=== PATIENT | male | born 1940 | race Caucasian/White ===

== ENCOUNTER 2016-08-22 09:41 | Observation (INO) | payer MEDICARE ==
[2016-08-22] MEDS ORDERED: Zofran 4 MG/2 ML VIAL IV ONE (10:17)
[2016-08-22] MEDS ORDERED: Hydromorphone 1 mg/ml Ampule IV ONE ×2 (10:17→11:50)
--- NOTE | 2016-08-22 10:23 | ERPHSYRPT ---
- History of Present Illness Time Seen by Provider: 08/22/16 09:52 Historian: patient, family () Patient Subjective Stated Complaint: PT REPROTS KNEE [id number] WEDNESDAY -STATES HE HAS ABD BURNING-HAS NOT HAD A GOOD BM SINCE SURGERY-STATES BURNING INCREASES WITH EATING-DENIES N/V-DENIES DIFFICULTY URINATING-DENIED BLOOD IN STOOL Triage Nursing Assessment: PT PALE WARM ET DRY-ABD FIRM-NONTENDER TO PALP-BOWEL SOUNDS HYPOACTIVE Physician History: CC: abd pain Hx: 75 y/o patient of Dr Chawla and Dr Mandel 4 days post op left knee replacement. He went home 2 days ago. No BM until this AM which was good but sticky. No blood in stool. He has 1-2 day hx of abd pain. This AM had nausea and vomited once. No fever or chills. No chest pain. No prior abd surgeries. Pain is moderately severe. Timing/Duration: day(s) (2) Quality: aching Abdominal Pain Onset Location: epigastric, generalized abdomen Pain Radiation: no radiation Severity of Pain-Max: moderate Severity of Pain-Current: moderate Allergies/Adverse Reactions: No Known Drug Allergies Allergy (Unverified 08/22/16 10:02) Home Medications: Aspirin 81 gm Chew [Baby Aspirin 81 mg Chew] 81 mg PO DAILY 08/22/16 [ History] Carvedilol 3.125 mg [Coreg 3.125 MG] 3.125 mg PO BID 08/22/16 [History] Glipizide/Metformin HCl [Glipizide-Metformin 2.5-500 mg] 1 each PO BID 08/22/16 [History] Hydrocodone Bit/Acetaminophen [[place] 10-325 Tablet] 1 each PO UD 08/22/16 [ History] Hydroxychloroquine Sulfate 200 mg PO DAILY 08/22/16 [History] Levothyroxine Sodium 75 Mcg [Synthroid 75 Mcg] 75 mcg PO DAILY 08/22/16 [ History] Lisinopril 10 mg [Zestril 10 MG] 10 mg PO BID 08/22/16 [History] Pravastatin Sodium [Pravachol] 20 mg PO HS 08/22/16 [History] Hx Tetanus, Diphtheria Vaccination/Date Given: No Hx Influenza Vaccination/Date Given: Yes Hx Pneumococcal Vaccination/Date Given: No Immunizations Up to Date: Yes - Review of Systems Constitutional: No Fever, No Chills Eyes: No Symptoms Ears, Nose, & Throat: No Symptoms Respiratory: No Cough, No Dyspnea Cardiac: No Chest Pain Abdominal/Gastrointestinal: Abdominal Pain, Nausea, Vomiting (X1 ), No Diarrhea Skin: No Rash Neurological: No Headache All Other Systems: Reviewed and Negative - Past Medical History Pertinent Past Medical History: Yes Neurological History: Peripheral Neuropathy Cardiac History: Hypertension, Other Respiratory History: No Pertinent History Endocrine Medical History: Diabetes Type II, Hypothyroidism Musculoskeletal History: Osteoarthritis Other Medical History: 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 Vital Signs: Initial Vital Signs Temperature 97.9 F Temperature Source Oral Pulse Rate 71 Respiratory Rate 22 Blood Pressure [Right Arm] 129/68 Pain Intensity 2 - Physical Exam General Appearance: alert Eye Exam: PERRL/EOMI Ears, Nose, Throat Exam: moist mucous membranes Neck Exam: normal inspection, non-tender, supple Respiratory Exam: normal breath sounds Cardiovascular Exam: regular rate/rhythm Gastrointestinal/Abdomen Exam: soft, tenderness (diffuse tender worse epigastrum ) Male Genitalia Exam: normal genitalia, No testicular tenderness Extremity Exam: pedal edema (trace) Neurologic Exam: alert, oriented x 3, cooperative, sensation nml, No motor deficits Skin Exam: warm, dry, pale SpO2 Interpretation: normal SpO2: 97 Oxygen Delivery: Room Air - Course Nursing assessment & vital signs reviewed: Yes EKG Interpreted by Me: RATE (79), Sinus Rhythm, NORMAL AXIS, NORMAL INTERVALS ( QTc 418), NORMAL QRS, Non-specific ST Changes - CT Exams abd pelvis CT Interpretation: Tele-radiologist Report (no acute) Ordered Tests: Active Orders 24 hr Category Date Time Status Clean Catch Urine Specimen STAT Care 08/22/16 10:17 Active EKG-ER Only STAT Care 08/22/16 10:17 Active IV Insertion STAT Care 08/22/16 10:17 Active NPO (ED) STAT Care 08/22/16 10:17 Active ABDOMEN AND PELVIS W CONTRAST [CT] Stat Exams 08/22/16 10:17 Taken CBC W DIFF Stat Lab 08/22/16 10:00 Completed CMP Stat Lab 08/22/16 10:00 Completed LIPASE Stat Lab 08/22/16 10:00 Completed Lactic Acid Stat Lab 08/22/16 10:17 Completed UA W/ MICROSCOPIC Stat Lab 08/22/16 11:10 Completed Medication Summary Generic Name Dose Route Start Last Admin Trade Name Freq PRN Reason Stop Dose Admin Sodium Chloride 1,000 mls @ 100 mls/hr 08/22/16 10:30 08/22/16 10:44 Sodium Chloride 0.9% 1000 Ml IV 09/21/16 10:29 100 mls/hr .Q10H SPENSER Administration Discontinued Medications Generic Name Dose Route Start Last Admin Trade Name Freq PRN Reason Stop Dose Admin Famotidine 20 mg 08/22/16 11:50 08/22/16 11:56 Pepcid 20 Mg Vial IV 08/22/16 11:51 20 mg STAT ONE Administration Famotidine Confirm 08/22/16 11:55 Pepcid 20 Mg Vial Administered 08/22/16 11:56 Dose 20 mg IV .STK-MED ONE Hydromorphone HCl 0.5 mg 08/22/16 10:17 08/22/16 10:44 Hydromorphone 1 Mg/Ml Ampule IV 08/22/16 10:18 0.5 mg STAT ONE Administration Hydromorphone HCl Confirm 08/22/16 10:38 Hydromorphone 1 Mg/Ml Ampule Administered 08/22/16 10:39 Dose 1 mg .ROUTE .STK-MED ONE Hydromorphone HCl 0.5 mg 08/22/16 11:50 Hydromorphone 1 Mg/Ml Ampule IV 08/22/16 11:51 STAT ONE Ondansetron HCl 4 mg 08/22/16 10:17 08/22/16 10:44 Zofran 4 Mg/2 Ml Vial IV 08/22/16 10:18 4 mg STAT ONE Administration Ondansetron HCl Confirm 08/22/16 10:38 Zofran 4 Mg/2 Ml Vial Administered 08/22/16 10:39 Dose 4 mg .ROUTE .STK-MED ONE Lab/Rad Data: Laboratory Result Diagrams 08/22/16 10:00 08/22/16 10:00 Laboratory Results 08/22/16 08/22/16 08/22/16 Range/Units 11:10 10:17 10:00 WBC (4.0-10.5) K/mm3 RBC (4.1-5.6) M/mm3 Hgb (12.5-18.0) gm/dl Hct (42-50) % MCV (78-100) fl MCH (26-32) pg MCHC (32-36) g/dl RDW (11.5-14.0) % Plt Count (150-450) K/mm3 MPV (6-9.5) fl Gran % (36.0-66.0) % Lymphocytes % (24.0-44.0) % Monocytes % (0.0-12.0) % Eosinophils % (0.00-5.0) % Basophils % (0.0-0.4) % Basophils # (0-0.4) Sodium 135 L (136-145) mEq/L Potassium 4.4 (3.5-5.1) mEq/L Chloride 101 (98-107) mEq/L Carbon Dioxide 24.3 (21-32) mEq/L Anion Gap 14.5 (5-15) MEQ/L BUN 22 H (9-20) mg/dL Creatinine 1.11 (0.55-1.30) mg/dl Estimated GFR > 60 ML/MIN Glucose 156 H (70-110) MG/DL Lactic Acid 1.8 (0.4-2.0) Calcium 8.7 (8.5-10.1) mg/dL Total Bilirubin 0.8 (0.2-1.0) mg/dL AST 34 (15-37) U/L ALT 25 (12-78) U/L Alkaline Phosphatase 65 (46-116) U/L Serum Total Protein 6.6 (6.4-8.2) gm/dL Albumin 3.1 L (3.4-5.0) g/dL Lipase 245 (73-393) U/L Ur Collection Type VOID Urine Color YELLOW (YELLOW) Urine Appearance CLEAR (CLEAR) Urine pH 5.5 (5-6) Ur Specific [place] 1.020 (1.005-1.025) Urine Protein 30 (Negative) Urine Glucose (UA) NEGATIVE (NEGATIVE) mg/dL Urine Ketones SMALL-15 (NEGATIVE) Urine Nitrite NEGATIVE (NEGATIVE) Urine Bilirubin NEGATIVE (NEGATIVE) Urine Urobilinogen 0.2 (0-1) mg/dL Urine WBC (Auto) NEGATIVE (NEGATIVE) Urine RBC (Auto) NEGATIVE (0-5) Rk/ul Ur Epithelial Cells FEW (FEW) /HPF Specimen Received 1130 08/22/16 Range/Units 10:00 WBC 11.2 H (4.0-10.5) K/mm3 RBC 3.53 L (4.1-5.6) M/mm3 Hgb 10.7 L (12.5-18.0) gm/dl Hct 33.1 L (42-50) % MCV 93.8 (78-100) fl MCH 30.3 (26-32) pg MCHC 32.3 (32-36) g/dl RDW 12.8 (11.5-14.0) % Plt Count 266 (150-450) K/mm3 MPV 10.1 H (6-9.5) fl Gran % 75.3 H (36.0-66.0) % Lymphocytes % 9.2 L (24.0-44.0) % Monocytes % 10.6 (0.0-12.0) % Eosinophils % 4.8 (0.00-5.0) % Basophils % 0.1 (0.0-0.4) % Basophils # 0.01 (0-0.4) Sodium (136-145) mEq/L Potassium (3.5-5.1) mEq/L Chloride (98-107) mEq/L Carbon Dioxide (21-32) mEq/L Anion Gap (5-15) MEQ/L BUN (9-20) mg/dL Creatinine (0.55-1.30) mg/dl Estimated GFR ML/MIN Glucose (70-110) MG/DL Lactic Acid (0.4-2.0) Calcium (8.5-10.1) mg/dL Total Bilirubin (0.2-1.0) mg/dL AST (15-37) U/L ALT (12-78) U/L Alkaline Phosphatase (46-116) U/L Serum Total Protein (6.4-8.2) gm/dL Albumin (3.4-5.0) g/dL Lipase (73-393) U/L Ur Collection Type Urine Color (YELLOW) Urine Appearance (CLEAR) Urine pH (5-6) Ur Specific [place] (1.005-1.025) Urine Protein (Negative) Urine Glucose (UA) (NEGATIVE) mg/dL Urine Ketones (NEGATIVE) Urine Nitrite (NEGATIVE) Urine Bilirubin (NEGATIVE) Urine Urobilinogen (0-1) mg/dL Urine WBC (Auto) (NEGATIVE) Urine RBC (Auto) (0-5) Rk/ul Ur Epithelial Cells (FEW) /HPF Specimen Received - Progress Progress Note: 08/22/16 12:59 Stilll has pain. Left knee slightly red and warm but not signficantly. Called Dr Shefali Silva for Linda and will place in obs here and cover with abtx. Etiology of pain in abd is likely pain medication side effect or constipation. Counseled pt/family regarding: lab results, diagnosis, need for follow-up, rad results - Departure Time of Disposition: 13:00 Departure Disposition: Observation Clinical Impression: Abdominal pain, post op left knee arthroplasty, Diabetes Condition: Stable Critical Care Time: No Referrals: JOANNA CHAWLA MD [Primary Care Provider] -
[2016-08-22 10:29] LABS: BASOPHIL % 0.1 % (0.0-0.4); Eosinophil % 4.8 % (0.00-5.0); Granulocytes % 75.3 % (36.0-66.0); Lymphocytes % 9.2 % (24.0-44.0); Mean Cell Volume 93.8 fl (78-100); Mean Corpuscular Hemoglobin 30.3 pg (26-32); Mean Platelet Volume 10.1 fl (6-9.5); Monocytes % 10.6 % (0.0-12.0); Platelet Count 266 K/mm3 (150-450); Red Blood Count 3.53 M/mm3 (4.1-5.6); Red Cell Distribution Width 12.8 % (11.5-14.0); White Blood Count 11.2 K/mm3 (4.0-10.5)
[2016-08-22] MEDS ORDERED: Sodium Chloride 0.9% 1000 ML 1,000 ML IV SCH (10:30)
[2016-08-22] MEDS ORDERED: Sodium Chloride 0.9% 1000 ML 1,000 ML ONE (10:38)
[2016-08-22] MEDS ORDERED: Zofran 4 MG/2 ML VIAL ONE (10:38)
[2016-08-22] MEDS ORDERED: Hydromorphone 1 mg/ml Ampule ONE (10:38)
[2016-08-22 10:54] LABS: ALBUMIN 3.1 g/dL (3.4-5.0); ALKALINE PHOSPHATASE 65 U/L (46-116); ANION GAP 14.5 MEQ/L (5-15); BILIRUBIN,TOTAL 0.8 mg/dL (0.2-1.0); BLOOD UREA NITROGEN 22 mg/dL (9-20); CHLORIDE 101 mEq/L (98-107); Carbon Dioxide 24.3 mEq/L (21-32); Glucose 156 MG/DL (70-110); LIPASE 245 U/L (73-393); Potassium 4.4 mEq/L (3.5-5.1); SGOT/AST 34 U/L (15-37); SGPT/ALT 25 U/L (12-78); SODIUM 135 mEq/L (136-145); Total Protein 6.6 gm/dL (6.4-8.2)
[2016-08-22 11:44] LABS: COMPLETE URINE MICROSCOPIC? YES; Collection Type VOID; Ph 5.5 (5-6)
[2016-08-22 11:46] LABS: Epithelial Cells FEW /HPF (FEW)
[2016-08-22] MEDS ORDERED: Pepcid 20 MG VIAL IV ONE ×2 (11:50→11:55)
[2016-08-22] MEDS ORDERED: Unasyn 3GM / NaCl 100ML 100 ML IV ONE (13:01)
[2016-08-22] MEDS: Sodium Chloride 0.9% 1000 ML 1,000 ML IV SCH (14:19)
[2016-08-22] MEDS ORDERED: TORAdol 30 mg Injection IV PRN (16:02)
[2016-08-22] MEDS ORDERED: MAALOX ES 30 ML UNIT DOSE PO PRN (16:03)
[2016-08-22] MEDS ORDERED: Norco 10/325 MG Tablet PO PRN (16:25)
--- NOTE | 2016-08-22 16:50 | HP ---
History has been gathered from review of patient's chart and discussion with patient, his , and Emergency Room physician. HISTORY OF PRESENT ILLNESS: Mr. Herrera is a 75 y/o male with past medical history of hypertension, diabetes mellitus, diabetic neuropathy, hypothyroidism, and osteoarthritis. He underwent left knee replacement on 08/18/16. Postoperatively, he was admitted at [facility] and eventually was discharged home on 08/20/16. As per patient's , patient did his physical therapy uneventfully on 08/21/16. Patient presented to Emergency Room today with symptoms of generalized abdominal pain and also of burning in upper abdominal area. His symptoms had started yesterday. Also, he was having some trouble having bowel movements since his surgery. However, he did have a bowel movement this morning. There was no reported history of fever, nausea, vomiting, blood in stools, or difficult urinating. As per patient, his symptoms of abdominal pain were worse with eating. He was not sure if his abdomen distended. Also, upon initial evaluation in Emergency Room, he was noted to have swelling, redness, and warmth in left knee area. Initial vitals in Emergency Room were BP of 129/68, heart rate 71, respiratory rate 22, temperature 97.9. He was treated with famotidine 20 mg IV X 1, Dilaudid 0.5 mg IV X 1, Zofran 4 mg IV X 1, NS 1 liter X 1. Subsequently, he was admitted to medical floor for further monitoring and management. At the time of this evaluation, patient is alert, awake, and comfortable. Complains of having generalized abdominal pain, worse in upper abdomen. Complains of left knee pain, swelling, and redness. Also, left calf is swollen and warm. PAST MEDICAL HISTORY: As noted above. Patient also has some history of artery abnormality related to heart. PAST SURGICAL HISTORY: As noted above. As per patient, he was not on any antibiotics or anticoagulants postoperative. FAMILY HISTORY: Noncontributory. SOCIAL HISTORY: No history of smoking or illicit drug use. CURRENT MEDICATIONS: Were reviewed. REVIEW OF SYSTEMS: Denies headache or dizziness. Denies fever. Complains of fatigue. Denied chest pain, shortness of breath, or cough. Complains of abdominal pain. No nausea or vomiting. Had constipation earlier which has improved. Denies urinary complaints. Complains of pain, swelling, redness, and warmth left knee area. Complains of pain, swelling, and warmth in left leg area. PHYSICAL EXAMINATION: HEENT: Normocephalic. No pallor or icterus noted. NECK: No JVD present. CVS: S1 and S2 present. RESPIRATORY: Breath sounds bilaterally diminished and clear to auscultation. ABDOMEN: Obese, soft. Mild generalized tenderness is present. No guarding or rigidity present. NEURO: He is alert and awake. Answers simple questions appropriately. EXTREMITIES: Reveals no edema on the right lower extremity. Left lower extremity shows 1+ edema. Calf tenderness is present. No erythema. Local warmth is present. Pedal pulses are well felt. Examination of left knee area reveals dressing. (Patient's states that that was to stay until patient saw ortho.) A small area of erythema with tenderness and warmth is noted near the dressing. LABORATORY DATA: Labs from today show CBC with WBC of 11.2, Hgb 10.7, Hct 33.1, platelets 266, neutrophils 75, lymphocytes 9. CMP is essentially unremarkable except glucose of 156, lactic acid 1.8. UA shows 30 protein, 1-5 ketones, few epithelial cells. Abdomen/pelvis CT showed no acute changes per preliminary report from Emergency Room. EKG showed sinus rhythm with 79 beats/minute, nonspecific ST-T changes per Emergency Room report. Lipase was in normal limits. ASSESSMENT: 75 y/o male with impression: 1. ABDOMINAL PAIN. 2. CELLULITIS LEFT KNEE AREA. 3. EDEMA LEFT LEG. 4. DIABETES MELLITUS WITH DIABETIC NEUROPATHY. 5. HISTORY OF HYPERTENSION. PLAN: 1. Patient is admitted for further monitoring and management. 2. Patient's abdominal pain has somewhat improved. Will add proton pump inhibitors and PRN Mylanta for upper abdominal pain. If symptoms persist, will likely get surgery evaluation. 3. With regards to his left lower extremity findings, will broad spectrum IV antibiotics. Will obtain stat venous Doppler to rule out deep vein thrombosis. 4. Will likely transfer to [facility] for orthopedic evaluation. The patient's clinical condition, work-up results, and plan of management were discussed with patient and . They seem to be in understanding and agreement. Discussed with patient's nurse.
[2016-08-22] MEDS: Zosyn 3.375GM/100 Ml D5W 100 ML IV SCH ×2 (17:33→23:20)
[2016-08-22] MEDS: Protonix 40MG Tablet PO SCH (17:33)
[2016-08-22] MEDS: Coreg 3.125 MG PO SCH (17:36)
[2016-08-22] MEDS ORDERED: Unasyn 1.5GM / NaCl 100ML 100 ML IV SCH (18:00)
--- NOTE | 2016-08-22 21:49 | XRAY ---
Indication: Left leg edema. Status post total knee. 2-dimensional sonogram and color Doppler imaging of the major venous vessels of the left leg was performed. Comparison: None No thrombus seen in the examined deep venous vessels of the left leg including greater saphenous vein. Veins demonstrate normal compressibility. Venous waveforms are normal with and without augmentation. Impression: Left leg negative for DVT. Comment: Preliminary report was given.
--- NOTE | 2016-08-22 21:49 | XRAY ---
Indication: Abdominal pain and vomiting. Multiple contiguous axial images obtained through the abdomen and pelvis using 80 cc Isovue 370 contrast only. Comparison: None Lung bases demonstrates tiny bibasilar effusions. The heart is borderline enlarged. Small hiatal hernia. Noncontrasted stomach and bowel loops appear nonobstructed. There is moderate diffuse scattered colonic fecal debris throughout. Diffuse scattered colonic diverticulosis without diverticulitis. Normal appendix. No free fluid/air. 4 cm exophytic right renal cyst and mild fatty liver. Remaining liver, gallbladder, pancreas, spleen, adrenal glands, kidneys, ureters, and bladder appear unremarkable. Minimal aortoiliac calcifications. No AAA or pathological retroperitoneal lymphadenopathy. Osseous structures intact with mild degenerative changes throughout the spine. Chronic-appearing L5 grade 2 anterolisthesis. Small bilateral fatty inguinal hernias. Impression: 1. Fecal stasis without obstruction. Colonic diverticulosis. 2. Right renal cyst and fatty liver. 3. Borderline cardiomegaly, tiny bibasilar effusions, and small hiatal hernia. 4. Chronic L5 grade 2 spondylolisthesis. Comment: Preliminary interpretation was made by [facility]. No critical discrepancy. CTDI 23.68
[2016-08-22] MEDS ORDERED: METFORMIN HCL PO SCH (22:00)
[2016-08-22] MEDS ORDERED: NON-FORMULARY ITEM (Pravastatin Sodium [Pravachol] 20 MG) PO SCH (22:00)
[2016-08-22] MEDS ORDERED: ZOCOR 20MG PO SCH (22:00)
[2016-08-22] MEDS ORDERED: GLIPIZIDE PO SCH (22:00)
[2016-08-22] MEDS: Pepcid 20 MG VIAL IV SCH (22:36)
[2016-08-22] MEDS: Zestril 10 MG PO SCH (22:39)
[2016-08-22] MEDS: ENOXAPARIN SODIUM SQ SCH (22:40)
[2016-08-23] MEDS: Sodium Chloride 0.9% 1000 ML 1,000 ML IV SCH (02:09)
[2016-08-23] MEDS: Zosyn 3.375GM/100 Ml D5W 100 ML IV SCH ×2 (06:12→11:44)
[2016-08-23] MEDS: Coreg 3.125 MG PO SCH (07:52)
[2016-08-23] MEDS: Glucotrol 5 MG PO SCH ×2 (07:52→16:30)
[2016-08-23] MEDS: Pepcid 20 MG VIAL IV SCH (09:22)
[2016-08-23] MEDS: ENOXAPARIN SODIUM SQ SCH (09:22)
[2016-08-23] MEDS: Zestril 10 MG PO SCH (09:22)
[2016-08-23] MEDS: Protonix 40MG Tablet PO SCH (09:22)
[2016-08-23] MEDS ORDERED: SYNTHROID 75 MCG PO SCH (10:00)
[2016-08-23] MEDS ORDERED: NON-FORMULARY ITEM (Hydroxychloroquine Sulfate [Hydroxychloroquine Sulfate] 0 MG) PO SCH (10:00)
[2016-08-23] MEDS ORDERED: NON-FORMULARY ITEM (Hydroxychloroquine Sulfate [Hydroxychloroquine Sulfate] 200 MG) PO SCH (10:00)
[2016-08-23] MEDS ORDERED: Ecotrin 325 MG PO SCH (10:00)
[2016-08-23 16:35] VITALS: BP 138/63; PULSE 71; O2SAT 93
[2016-08-23 16:36] LABS: BASOPHIL % 0.1 % (0.0-0.4); Eosinophil % 5.4 % (0.00-5.0); Granulocytes % 64.5 % (36.0-66.0); Lymphocytes % 16.4 % (24.0-44.0); Mean Cell Volume 94.5 fl (78-100); Mean Corpuscular Hemoglobin 30.9 pg (26-32); Mean Platelet Volume 9.9 fl (6-9.5); Monocytes % 13.6 % (0.0-12.0); Platelet Count 251 K/mm3 (150-450); Red Blood Count 3.07 M/mm3 (4.1-5.6); Red Cell Distribution Width 12.7 % (11.5-14.0)
[2016-08-23 16:57] LABS: ANION GAP 10.5 MEQ/L (5-15); BLOOD UREA NITROGEN 16 mg/dL (9-20); CHLORIDE 104 mEq/L (98-107); Carbon Dioxide 25.8 mEq/L (21-32); Glucose 148 MG/DL (70-110); Potassium 4.2 mEq/L (3.5-5.1); SODIUM 136 mEq/L (136-145)
--- NOTE | 2016-08-23 21:57 | XRAY ---
Indication: Postop swelling. Comparison: None 3 views of the left knee demonstrates total knee arthroplasty with intact articulation and prosthesis. Soft tissue changes including cutaneous seth attest to recent surgery. No other bony, articular, or soft tissue abnormalities. Comment: Preliminary interpretation was made by [facility]. No discrepancy.
--- NOTE | 2016-08-24 10:51 | DS ---
DISCHARGE DIAGNOSES: 1) ABDOMINAL PAIN, RESOLVED. 2) CELLULITIS, LEFT KNEE AREA CLINICALLY IMPROVED. 3) EDEMA LEFT LEG, IMPROVED. 4) DIABETES MELLITUS WITH DIABETIC NEUROPATHY. 5) HYPERTENSION. CONSULTANTS ON CASE: Covering orthopedic surgeon, Dr. Fortune, was consulted by phone. HOSPITAL COURSE: Moise Herrera is a 75 year-old male with past medical history of hypertension, diabetes mellitus, and diabetic neuropathy. He had recently underwent left total knee replacement on 08/18/2016 and was discharged home on 08/20/2016. He had reportedly done his physical therapy on 08/21/2016. He was seen in the emergency room on 08/22/2016 with symptoms of generalized abdominal pain and burning in upper abdominal area which had started on 08/21/2016. Also he was noticed to have some trouble having bowel movements and upon evaluation in the emergency room he was noticed to have swelling, redness, warmth in left knee area. Also, his left calf was noted to be swollen and warm. Initial lab work up was notable with CBC with white blood cell 11.2, hemoglobin 10.7. CMP was unremarkable except glucose of 156, lactic acid 1.8. UA showed 30 protein, 1 to 5 ketones, few epithelial cells. Abdomen and pelvis CT showed no acute changes preliminary report from the emergency room. EKG showed sinus rhythm at 79 beats/minute, nonspecific ST-T changes per emergency room report. Lipase was within normal limits. He was admitted to medical floor. Eventually he had two bowel movements. Additionally he was placed on proton pump inhibitor and Maalox. However with that his abdominal symptoms had improved. He was placed on clear liquid diet that he tolerated well. In view of his left knee/left leg findings, he was placed on broad spectrum IV antibiotics. He underwent left lower extremity venous Doppler which was negative for deep venous thrombosis. The patient's covering orthopedic surgeon for Dr. Hernandes, Dr. Fortune, was contacted over the phone and informed of the patient's findings about left knee, left lower extremity as discussed by patient's nurse. He advised to continue antibiotic and follow up with the regular orthopedic doctor early next week. The patient was also placed on analgesics. During his further course he improved clinically. At the time of this evaluation he is alert, awake, and comfortable. He states his abdominal pain has resolved. He had a good bowel movement today. He has tolerated clear liquid diet without any difficulty. He states his left knee pain/swelling has improved. He is otherwise feeling well. He denies any other new complaints. He is wishing to go home. He is requesting to be discharged home today as the patient and have some outpatient appointments tomorrow. Appears comfortable. PHYSICAL EXAMINATION: VITAL SIGNS: Blood pressure 134/66, heart rate 80, respiratory rate 20, temperature 98F. Oxygen saturation 97% on room air. HEENT: Pallor is present. NECK: No JVD is present. CVS: S1, S2 present. RESPIRATORY: Breath sounds are bilaterally diminished and clear to auscultation. ABDOMEN: Obese, soft, nontender. Bowel sounds are present. NEURO: He is alert, oriented x3. EXTREMITIES: No edema on right lower extremity. Left lower extremity examination reveals edema on left leg, no calf tenderness is present. Pedal pulses are felt. Examination of left knee area dressing was opened for first time yesterday after discussion with orthopedic surgeon director of cardiac rehabilitation. Examination of left knee area showed well healing surgical wound with seth intact in place. Minimal erythema is present at wound margins. No discharge is noted. Local edema is present. Localized area of erythema is noted on anterior aspect of left knee. No local warmth is noted. Range of motion of left knee is mildly painful. LABORATORY DATA AND TESTS: There were no new labs today. Medications were reviewed. ASSESSMENT: As outlined in discharge diagnosis PLAN: The patient underwent left total knee replacement last week and was admitted with abdominal symptoms upon evaluation. He was also noted to have left knee cellulitis. His abdominal symptoms have resolved. He has been placed on broad spectrum IV antibiotics and with that his symptoms of left knee have improved. His hemoglobin A1C is 6.3. In view of patient being diabetic and his recent surgery, I recommend that the patient recommend that the patient receive additional IV antibiotic for the next few days. The option of possible addition inpatient IV antibiotics was discussed. However the patient and had requested to be discharged today. The patient and are requesting him to be discharge home as they have several appointments tomorrow. Will obtain left knee x-ray, will ambulate the patient. If the patient does well, will also advance his diet and if patient does well on those aspects, will likely discharge home later today with management for IV antibiotic at infusion center. Also the patient and are to contact his regular orthopedic surgeon, Dr. Hernandes, tomorrow and obtain a follow up appointment with him NEELAM. Also additional wound care/dressing changes will continue as outpatient as orthopedic recommendations. I have advised the patient and his to closely monitor area of surgery and return to the emergency room immediate if any new changes to evaluate the area or any new symptoms were noted. Also advised them to return to the emergency room NEELAM if any new signs and symptoms or reappearance of previous signs and symptoms are noted. The patient's clinical condition, work-up results and plan of management were discussed at great length with patient and family. They seem to be in understanding and agreement of same. Please refer to discharge medication list from for details of medications on discharge. I have advised the patient to obtain CMP and CBC in one week and follow up with our office in ten days. Compliance with diet and medications was stressed. I have advised to return to the Emergency Room NEELAM if any new signs and symptoms or reappearance of previous signs and symptoms are noted. The patient's clinical condition, work-up results and plan of management including plan after discharge was discussed at great length with patient and . They had several questions which were answered in detail. I have also advised them to follow up with Dr. Mckeon in office in the next ten days. Compliance with diet, medications, wound care recommendations and follow up appointments were stressed. I have advised him to return to the emergency room NEELAM if any new signs/symptoms or reappearance of previous signs/symptoms were noted. The patient and seemed to be in understanding and agreement of discussion from today and are in agreement with treatment plan including discharge plan as outlined above. Discussed with patient's nurse, Maya, who was present during today's evaluation. Case management will arrange outpatient IV antibiotics prior to the patient's discharge. Please refer to discharge medication list from 08/22/2016 for details of medications on discharge.
[2016-08-24] MEDS ORDERED: Glucophage 500 MG PO SCH (17:00)
== END 2016-08-23 18:05 | disposition home or self-care (01) ==
LOC: ED 09:41 → MED SURG 13:20
PROVIDERS: ADMIT General Practice; ATTEND General Practice
DX: R10.9 Unspecified abdominal pain (principal); T84.54XA Infection and inflammatory reaction due to internal left knee prosthesis, initial encounter; L03.116 Cellulitis of left lower limb; M25.562 Pain in left knee; E11.40 Type 2 diabetes mellitus with diabetic neuropathy, unspecified; I10 Essential (primary) hypertension; M79.89 Other specified soft tissue disorders; Z96.652 Presence of left artificial knee joint; M19.90 Unspecified osteoarthritis, unspecified site; Z79.899 Other long term (current) drug therapy
CPT/HCPCS: 36000; 36415; 73562; 74177; 80048; 80053; 81000; 82962; 83036; 83605; 83690; 85025; 93005; 93971; 96360; 96361; 96374; 96375; 99285; G0378; J0295; J1170; J1650; J1885; J2405; J2543; A9270-GY

== ENCOUNTER 2021-04-03 09:56 | Emergency (ER) | payer MEDICARE ==
--- NOTE | 2021-04-03 10:24 | ERPHSYRPT ---
- History of Present Illness Time Seen by Provider: 04/03/21 10:24 Source: patient, family Exam Limitations: no limitations Physician History: This is an 80-year-old left-handed patient of Dr. Chawla who has a history of elevated cholesterol, hypertension, hypothyroidism and oil-vrrhluj-abjenpemu diabetes. Prior to arrival, the patient was leaning over to grab the dog leash and fell onto his left outstretched arm. He complains of and presents with pain in his left shoulder and left wrist. He did not hit his head. He has no headache he has no neck pain. He did not lose consciousness. Patient denies chest pain and denies shortness of breath. Occurred: just prior to arrival Injuries/Pain Location: upper extremity (Left upper extremity. Specifically pain in the left shoulder and left wrist) Loss of Consciousness: no loss of consciousness Quality: aching Severity of Pain-Max: moderate Severity of Pain-Current: moderate Modifying Factors: Improves With: movement Associated Symptoms (Fall): extremity injury (Left upper extremity), No confusion, No chest pain, No shortness of breath, No slurred speech Allergies/Adverse Reactions: No Known Drug Allergies Allergy (Unverified 08/22/16 10:02) Home Medications: Aspirin EC 325 mg [Ecotrin 325 MG] 325 mg PO DAILY 08/22/16 [History] Carvedilol 3.125 mg [Coreg 3.125 MG] 3.125 mg PO BID 08/22/16 [History] Glipizide/Metformin HCl [Glipizide-Metformin 2.5-500 mg] 1 tab PO BID 08/22/16 [History] Hydrocodone/Acetaminophen [Stanley 10-325 Tablet] 1 each PO Q6HPRN PRN 08/22/16 [History] Hydroxychloroquine Sulfate 200 mg PO DAILY 08/22/16 [History] Levothyroxine Sodium 75 Mcg [Synthroid 75 Mcg] 75 mcg PO DAILY 08/22/16 [History] Lisinopril 10 mg [Zestril 10 MG] 10 mg PO BID 08/22/16 [History] Pravastatin Sodium [Pravachol] 20 mg PO HS 08/22/16 [History] Hx Tetanus, Diphtheria Vaccination/Date Given: No Hx Influenza Vaccination/Date Given: Yes Hx Pneumococcal Vaccination/Date Given: No Travel Risk - International Travel Have you traveled outside of the country in past 3 weeks: No - Coronavirus Screening Are you exhibiting any of the following symptoms?: No Close contact with a COVID-19 positive Pt in past 14-21 Days: No - Review of Systems Constitutional: No Symptoms Eyes: No Symptoms Ears, Nose, & Throat: No Symptoms Respiratory: No Symptoms Cardiac: No Symptoms Abdominal/Gastrointestinal: No Symptoms Genitourinary Symptoms: No Symptoms Musculoskeletal: Fall, Injury (Left shoulder left wrist), Joint Pain (Left shoulder left wrist) Skin: No Symptoms Neurological: No Symptoms Psychological: No Symptoms Endocrine: No Symptoms Hematologic/Lymphatic: No Symptoms Immunological/Allergic: No Symptoms All Other Systems: Reviewed and Negative - Past Medical History Pertinent Past Medical History: Yes Neurological History: No Pertinent History ENT History: No Pertinent History Cardiac History: High Cholesterol, Hypertension Respiratory History: No Pertinent History Endocrine Medical History: Diabetes Type II, Hypothyroidism Musculoskeletal History: Arthritis GI Medical History: No Pertinent History History: No Pertinent History Psycho-Social History: Depression Male Reproductive Disorders: No Pertinent History Other Medical History: Lumbar spinal fusion (16 y/o), R rotator cuff repair (maybe 2003), B TKA - Past Surgical History Past Surgical History: Yes Neuro Surgical History: No Pertinent History Cardiac: Cardiac Catheterization Respiratory: No Pertinent History Gastrointestinal: No Pertinent History Genitourinary: No Pertinent History Musculoskeletal: Orthopedic Surgery Male Surgical History: No Pertinent History Other Surgical History: Left knee replacement 4 days ago; Right knee replacement 3years; Spinal fusion in 1957 - Social History Smoking Status: Never smoker Exposure to second hand smoke: No Drug Use: none 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 Vital Signs: Initial Vital Signs Temperature 97.4 F 04/03/21 10:59 Pulse Rate 62 04/03/21 10:59 Blood Pressure 113/67 04/03/21 10:59 O2 Sat by Pulse Oximetry 96 04/03/21 10:59 Pain Scale Pain Intensity 7 - Howard Coma Score Best Eye Response (Shayy): (4) open spontaneously Best Verbal Response (Shayy): (5) oriented Best Motor Response (Howard): (6) obeys commands Howard Total: 15 - Physical Exam General Appearance: no apparent distress, alert, obese Head Injury: no evidence of injury Eye Exam: PERRL/EOMI, eyes nml inspection ENT Exam: airway nml, nml ext.inspection Neck Exam: supple, trachea midline, full range of motion, normal alignment, normal inspection Respiratory/Chest Exam: No chest tenderness, No respiratory distress Gastrointestinal Exam: No tenderness Rectal Exam: not done Back Exam: normal inspection, normal range of motion, No CVA tenderness, No vertebral tenderness Extremity Exam: normal range of motion, pelvis stable, evidence of injury (Tender left wrist, tender left shoulder), tenderness (Tender left wrist, tender left shoulder) Neurologic Exam: alert, oriented x 3, cooperative, bridge tender II-XII nml as tested, normal mood/affect, nml cerebellar function, nml station & gait, sensation nml Skin Exam: normal color, warm, dry SpO2 Interpretation: normal O2 Delivery: Room Air Procedures - Splinting Time of Procedure: 12:00 Location of Splint: Left, Wrist Type of Splint: Orthoglass Short Arm Splint Splint Applied By: ED Nurse Pre-Proc Neuro Vasc Exam: normal Post-Proc Neuro Vasc Exam: neurovascular intact - Course Nursing assessment & vital signs reviewed: Yes Ordered Tests: Active Orders 24 hr Category Date Time Status FOREARM Stat Exams 04/03/21 10:25 Completed HUMERUS Stat Exams 04/03/21 10:25 Completed SHOULDER Stat Exams 04/03/21 10:25 Completed WRIST (MIN 3 VIEWS) Stat Exams 04/03/21 10:25 Completed - Progress Progress: improved, pain not gone completely, re-examined Progress Note: 04/03/21 11:56 Patient does not want any pain medicine at this time. However he does want pain medicine to be called into his pharmacy. Left wrist x-ray: Distal left radius minimally displaced comminuted fracture. Left forearm x-ray: Degenerative changes. No acute fracture other than left distal radius fracture above. Left humerus x-ray: Degenerative changes. No acute fracture or dislocation. Left shoulder x-ray: Degenerative changes no acute fracture or dislocation. Counseled pt/family regarding: diagnosis, need for follow-up, rad results - Departure Departure Disposition: Home Clinical Impression: Closed fracture of left distal radius Condition: Stable Critical Care Time: No Referrals: JOANNA CHAWLA MD [Primary Care Provider] - COUNTS INCLUDE 234 BEDS AT THE [facility] M-F [id number] (Follow- up with [facility] orthopedic clinic on 04/07/2021 at 8 AM. It is a walk-in clinic. This patient has a left distal radius minimally displaced comminuted fracture) Additional Instructions: Ice pack to area 3 times a day for the next 48 hours. May add ibuprofen 600 mg orally with food 3 times a day for pain control if there are no contraindications. Follow-up with [facility] orthopedic clinic on 04/07/2021 at 8 AM for further management. Take your pain medicine as prescribed. Prescriptions: Hydrocodone/APAP 5/325 [Stanley 5/325 mg] 1 each PO Q8H PRN PRN #10 tablet MDD 3 PRN Reason: Pain
--- NOTE | 2021-04-03 11:18 | XRAY ---
Indication: Pain following fall. Comparison: None 2 view left forearm demonstrates osteopenia and distal radius fracture reported separately. No other bony, articular, or soft tissue abnormalities.
--- NOTE | 2021-04-03 11:18 | XRAY ---
Indication: Pain following fall. Comparison: None 2 view left humerus demonstrates osteopenia and shoulder degenerative arthropathy reported separately. No other bony, articular, or soft tissue abnormalities.
--- NOTE | 2021-04-03 11:20 | XRAY ---
Indication: Pain following fall. Comparison: None 3 view left wrist demonstrates minimally displaced comminuted distal radius fracture with intra-articular extension and soft tissue swelling. Elsewhere osteopenia and moderate 1st metacarpal multangular scaphoid degenerative changes.
--- NOTE | 2021-04-03 11:23 | XRAY ---
Indication: Pain following fall. Comparison: None 3 view left shoulder demonstrates osteopenia, mild glenohumeral degenerative arthropathy, and moderate AC degenerative arthropathy. No other bony, articular, or soft tissue abnormalities.
[2021-04-03 12:06] VITALS: BP 124/65; PULSE 58; O2SAT 98
== END 2021-04-03 12:23 | disposition home or self-care (01) ==
LOC: ED 09:56
DX: S52.502A Unspecified fracture of the lower end of left radius, initial encounter for closed fracture (principal); W18.30XA Fall on same level, unspecified, initial encounter; E11.9 Type 2 diabetes mellitus without complications; E78.5 Hyperlipidemia, unspecified; I10 Essential (primary) hypertension; E03.9 Hypothyroidism, unspecified; Z79.84 Long term (current) use of oral hypoglycemic drugs; Z79.891 Long term (current) use of opiate analgesic
CPT/HCPCS: 29125; 73030; 73060; 73090; 73110; 99284

== ENCOUNTER 2023-08-19 09:49 | Emergency (ER) | payer MEDICARE ==
[2023-08-19 10:02] VITALS: TEMP 97.2
[2023-08-19] MEDS ORDERED: Norflex 60 MG/2 ML ONE (10:34)
[2023-08-19] MEDS ORDERED: MORPHINE SULFATE 4 MG INJ ONE (10:34)
[2023-08-19] MEDS: Norflex 60 MG/2 ML IM ONE (10:37)
[2023-08-19] MEDS: MORPHINE SULFATE 4 MG INJ IM ONE (10:37)
--- NOTE | 2023-08-19 12:03 | ERPHSYRPT ---
- History of Present Illness Time Seen by Provider: 08/19/23 10:12 Source: patient, family Exam Limitations: no limitations Patient Subjective Stated Complaint: right lower/medial/lateral back pain since Wednesday Triage Nursing Assessment: Pt brought to the ER by his , hypertensive, rates pain at this time as 3/10, states that pain is worse when he moves, pulses normal, skin n/w/d, slight pain with palpatation, denies injury, had went to a [employer] and sat for a long time in a metal chair and it has hurt since, had back fused while in high school Physician History: 82 years old male with history of chronic back pain with fusion long time ago presented in the ER with increasing right lower back pain for the last 4 to 5 days with progressive worsening. Patient reports moderate intensity sharp pain with ambulation and movements and partial relief with lying in a certain position especially on the recliner which relaxes his back. Patient denies any radiation to right lower extremity. No loss of bowel or bladder control. No perineal numbness. Denies any fall or trauma. No abdominal pain nausea or vomiting. No urinary complaints. Allergies/Adverse Reactions: No Known Drug Allergies Allergy (Verified 08/19/23 10:02) Home Medications: Carvedilol 3.125 mg [Coreg 3.125 MG] 3.125 mg PO BID 08/22/16 [History] Glipizide/Metformin HCl [Glipizide-Metformin 2.5-500 mg] 1 tab PO BID 08/22/16 [History] Levothyroxine Sodium 75 Mcg [Synthroid 75 Mcg] 75 mcg PO DAILY 08/22/16 [History] Lisinopril 10 mg [Zestril 10 MG] 10 mg PO BID 08/22/16 [History] Pravastatin Sodium [Pravachol] 410 mg PO HS 08/22/16 [History] Aspirin EC 81 mg [Ecotrin 81 mg] 81 mg PO DAILY 08/19/23 [History] Chlorthalidone 25 mg PO DAILY 08/19/23 [History] Cyanocobalamin 1000 Mcg/ml [Cyanocobalamin B-12 1000 MCG/ML] 1,000 mcg IJ WEEKLY 08/19/23 [History] Meloxicam 7.5 mg PO DAILY 08/19/23 [History] Hx Tetanus, Diphtheria Vaccination/Date Given: No Hx Influenza Vaccination/Date Given: Yes Hx Pneumococcal Vaccination/Date Given: No Travel Risk - International Travel Have you traveled outside of the country in past 3 weeks: No - Emerging Infectious Disease Are you exhibiting symptoms associated with any current EIDs: No - Review of Systems Constitutional: No Symptoms Ears, Nose, & Throat: No Symptoms Respiratory: No Symptoms Cardiac: No Symptoms Abdominal/Gastrointestinal: No Symptoms Genitourinary Symptoms: No Symptoms Musculoskeletal: Back Pain Skin: No Symptoms Neurological: No Symptoms Psychological: No Symptoms Endocrine: No Symptoms Hematologic/Lymphatic: No Symptoms Immunological/Allergic: No Symptoms - Past Medical History Pertinent Past Medical History: Yes Neurological History: Peripheral Neuropathy ENT History: No Pertinent History Cardiac History: Hypertension Respiratory History: No Pertinent History Endocrine Medical History: Diabetes Type II Musculoskeletal History: Arthritis, Fractures GI Medical History: No Pertinent History History: No Pertinent History Psycho-Social History: Depression Male Reproductive Disorders: No Pertinent History Other Medical History: R eye vision loss, spinal fusion (16 years old), R rotator cuff repair, B TKA, tonsillectomy (4 years old) - Past Surgical History Past Surgical History: Yes Neuro Surgical History: No Pertinent History Cardiac: Cardiac Catheterization Respiratory: No Pertinent History Gastrointestinal: No Pertinent History Genitourinary: No Pertinent History Musculoskeletal: Orthopedic Surgery Male Surgical History: No Pertinent History Other Surgical History: Left knee replacement 4 days ago; Right knee replacement 3years; Spinal fusion in 1957 - Social History Smoking Status: Never smoker Exposure to second hand smoke: No Drug Use: none 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 Vital Signs: Initial Vital Signs Temperature 97.2 F 08/19/23 09:55 Pulse Rate 65 08/19/23 09:55 Blood Pressure 152/78 08/19/23 09:55 O2 Sat by Pulse Oximetry 97 08/19/23 09:55 Pain Scale Pain Intensity [Right Lower 3 Medial Back] Pain Intensity 0 - Physical Exam General Appearance: no apparent distress, alert Eye Exam: PERRL/EOMI Ears, Nose, Throat Exam: normal ENT inspection Neck Exam: normal inspection, full range of motion Respiratory Exam: normal breath sounds, lungs clear Cardiovascular Exam: regular rate/rhythm, normal heart sounds Gastrointestinal Exam: soft, normal bowel sounds, No tenderness Back Exam: normal inspection, vertebral tenderness (Minimal lumbar spinal tenderness), decreased range of motion, muscle spasm (Right lumbar paraspinal area), point tenderness Extremity Exam: normal inspection, normal range of motion, other (Straight leg raising test negative at 90) Neurologic Exam: alert, oriented x 3, cooperative, human resources project coordinator II-XII nml as tested, sensation nml, other (2+ bilateral symmetric patellar and Achilles reflexes), No motor deficits Skin Exam: normal color SpO2 Interpretation: normal SpO2: 97 O2 Delivery: Room Air Ordered Tests: Active Orders 24 hr Category Date Time Status LUMBAR SPINE W/O [CT] Stat Exams 08/19/23 10:18 Completed Medication Summary Discontinued Medications Generic Name Dose Route Start Last Admin Trade Name Ford PRN Reason Stop Dose Admin Morphine Sulfate 4 mg 08/19/23 10:17 08/19/23 10:37 Morphine Sulfate 4 Mg/Ml Injection IM 08/19/23 10:18 4 mg STAT ONE Administration Morphine Sulfate Confirm 08/19/23 10:34 Morphine Sulfate 4 Mg/Ml Injection Administered 08/19/23 10:35 Dose 4 mg .ROUTE .STK-MED ONE Orphenadrine Citrate 30 mg 08/19/23 10:18 08/19/23 10:37 Orphenadrine Citrate 60 Mg/2 Ml Vial IM 08/19/23 10:19 30 mg STAT ONE Administration Orphenadrine Citrate Confirm 08/19/23 10:34 Orphenadrine Citrate 60 Mg/2 Ml Vial Administered 08/19/23 10:35 Dose 60 mg .ROUTE .STK-MED ONE - Progress Progress: improved Progress Note: 08/19/23 12:36 82 years old is evaluated for right lower back pain for the last few days without any obvious known trauma Patient has history of chronic back issues with fusion done in the past. He is given symptomatic treatment, on reevaluation he is pain-free. He does not have any cauda equina symptoms, negative neuro exam in lower extremities. Patient CT lumbar spine showed new finding but remote T10 endplate fracture less than 25% height loss without any obvious canal narrowing/encroachment. Patient does have some other degenerative changes. I do not think patient needs emergent neurosurgery/spine surgery consultation but outpatient follow-up is recommended. I would give him lidocaine patches and few tramadol's to go home and recomm ended taking Tylenol as needed. Outpatient follow-up with primary care and spine surgery recommended. Discussed signs symptoms of worsening needing return to ER which she seems understanding. Stable for discharge. Counseled pt/family regarding: diagnosis, need for follow-up, rad results Medical Desision Making - Independent Historian Additional History obtained from: Spouse - Diagnostic Testing Diagnostic test were ordered, analyzed, and reviewed by me: Yes Radiological Interpretation: Reviewed by me - Risk of complications The pt has a mod risk of morbidity or mortality based on: Need for prescription drug management - Departure Departure Disposition: Home Clinical Impression: Closed T10 fracture, Acute exacerbation of chronic low back pain Condition: Stable Critical Care Time: No Referrals: JOANNA CHAWLA MD [Primary Care Provider] - Follow up with PCP 1 day Instructions: Low Back Pain (DC), Vertebral Compression Fracture (DC) Additional Instructions: Follow-up with primary care and spine surgery for reevaluation. Return to ER for intractable pain, numbness tingling weakness of lower extremities, saddle anesthesia, loss of bowel or bladder control. Use cane/walker to avoid a fall. [facility] [phone] for appointment Prescriptions: Tramadol HCl 50 mg [Ultram 50 mg] 50 mg PO Q6HPRN PRN 3 Days #12 tablet PRN Reason: Pain Lidocaine HCl 5% Patch [Lidoderm Patch 5%] 1 patch TP DAILY 12 Days #12 patch
--- NOTE | 2023-08-19 12:08 | XRAY ---
Indication: Low back pain. Multiple contiguous axial images obtained through the lumbar spine. Sagittal and coronal reformatted images obtained. Comparison: August 22, 2016 Osseous structures remain demineralized. Superior endplate T10 demonstrates new minimal concave deformity favoring remote fracture with less than 25% height loss. Stable minimal/mild multilevel endplate spurring again greatest at L1-L3 levels, tiny T11-T12/L1-L2 vacuum disc phenomena, and mild/moderate bilateral L4-S1 degenerative facet hypertrophy. No acute fracture, suspicious bony lesions, or spinal canal stenosis. Sagittal and coronal reformatted images again demonstrates minimal dextroscoliosis, chronic grade 2 anterior spondylolisthesis L5 on S1, and L2-L3 disc space narrowing. No acute compression fracture or new subluxation. Visualized noncontrasted soft tissues again demonstrates mild scattered aortoiliac calcifications. Impression: 1. New remote-appearing T10 superior endplate fracture without spinal canal/foraminal encroachment. 2. Stable osteopenia, multilevel degenerative changes, chronic grade 2 L5 listhesis, dextroscoliosis, and arteriosclerotic disease.
[2023-08-19 13:01] VITALS: BP 168/73; PULSE 64; RESP 16; O2SAT 98
== END 2023-08-19 13:07 | disposition home or self-care (01) ==
LOC: ED 09:49
DX: M48.54XA Collapsed vertebra, not elsewhere classified, thoracic region, initial encounter for fracture (principal); G89.29 Other chronic pain; M54.50 Low back pain, unspecified; I10 Essential (primary) hypertension; E11.42 Type 2 diabetes mellitus with diabetic polyneuropathy; Z79.891 Long term (current) use of opiate analgesic; Z79.84 Long term (current) use of oral hypoglycemic drugs; Z79.899 Other long term (current) drug therapy
CPT/HCPCS: 72131; 96372; 99283; J2270; J2360

== ENCOUNTER 2023-11-03 07:00 | Day surgery (SDC) | payer MEDICARE ==
[2023-11-03] MEDS ORDERED: Depo-Medrol 40 MG/ML IM ONE (07:01)
[2023-11-03] MEDS ORDERED: Xylocaine-Mpf 2% 5 Ml Vial IJ ONE (07:01)
[2023-11-03] MEDS ORDERED: DIPRIVAN 200 MG/20 ML IV ONE (08:56)
[2023-11-03] MEDS ORDERED: Lactated Ringers 1,000 ML IV ONE (10:52)
--- NOTE | 2023-11-03 10:58 | XRAY ---
Indication: Bilateral L4-S1 MBB. Intraoperative fluoroscopy provided for 12 seconds. Single digital spot image submitted for interpretation demonstrates posterior needle tips projecting over the expected left and right L4-S1 nerve roots. Correlate with intraoperative findings/report.
--- NOTE | 2023-11-03 11:45 | XRAY ---
12 seconds of fluoroscopy was used in surgery for a bilateral L4-S1 MBB.
== END 2023-11-03 09:29 ==
LOC: SDC-PAIN 07:00
PROVIDERS: ATTEND Psychiatry & Neurology Pain Medicine
DX: M47.816 Spondylosis without myelopathy or radiculopathy, lumbar region (principal); E11.9 Type 2 diabetes mellitus without complications
CPT/HCPCS: 64493; 64494; 72020; 77002; 82947; J2704